=== PATIENT | female | born 1970 | race Caucasian/White ===

== ENCOUNTER 2025-02-12 12:47 | Emergency (ER) | payer MEDICAID, SELFPAY ==
[2025-02-12 12:49] VITALS: BMI 37.6
[2025-02-12 13:10] VITALS: BP 150/87; PULSE 81; RESP 18; TEMP 37.2; O2SAT 96
--- NOTE | 2025-02-12 13:15 | XR_ITS ---
Examination: CT abdomen and pelvis without contrast. Coronal 3-D reconstructions. Sagittal 2-D reconstructions. Date and time of exam:February 04, 2025 1436 hours INDICATIONS: Onset left upper abdominal pain today COMPARISON: June 05, 2017 CTDI: vol (mGy): 18.3 DLP: (mGycm): 1152 Technique: Axial images of the abdomen have been obtained, 3 mm slice thickness Intravenous contrast material has not been administered. Low dose protocols were performed. One or more of the following dose reduction techniques were used; automated exposure control, adjustment of the mA and/or KV according to patient size, use of iterative reconstruction technique. Findings: Diffuse fatty infiltration throughout the liver Absent gallbladder Spleen not enlarged No pancreatic or adrenal mass Status post partial left nephrectomy 1 mm nonobstructing right renal calculus, no hydronephrosis or ureteral calculi Normal appendix Abdominal aortic calcification no aneurysmal dilatation No bowel obstruction No diverticulitis No pelvic mass Bladder intact Moderate degenerative disc disease L4-L5 IMPRESSION: Partial left nephrectomy 1 mm nonobstructing right renal calculus Normal appendix No bowel obstruction or diverticulitis
--- NOTE | 2025-02-12 13:17 | EDNOTE_ITS ---
<Statement entered by Coni Jay MD - 02/16/25 05:26> As co-signing physician, I was present and available for consult prn. I concur with the plan and care as documented by the midlevel provider. ED General RME/HPI General Chief complaint: Abdominal Pain Stated complaint: LEFT UPPER ABD PAIN, NAUSEA, DIARRHEA, SHAKY Time Seen by Provider: 02/12/25 13:15 Arrival date/time: 02/12/25 12:47 CC: Nausea and diarrhea with burning sensation abdomen HPI ongoing for the past 2 days no prior history of similar events denies being around other people who are ill with similar symptoms. Antibiotics several weeks ago for abdominal pain . Patient currently not taking any daily medications states most of her pain is in the left upper quadrant and the right lower quadrant. Denies actual vomiting chest pain shortness of breath or difficulty breathing. Related Data Home Medications ?Medication ?Instructions ?Recorded ?Confirmed famotidine 20 mg tablet (Pepcid) 20 mg PO BID #0 tabs 09/17/17 fluconazole 200 mg tablet 400 mg PO QDAY #0 tabs 09/17 (Diflucan) Previous Rx's ?Medication ?Instructions ?Recorded Fluticasone/Vilanterol (Breo 1 ea IH QDAY #1 ea Ellipta 100-25 Mcg INH) albuterol sulfate 90 mcg/actuation 1 - 2 puff inhalati on Q6HR PRN 09/17/17 aerosol inhaler (ProAir HFA) WHEEZING #1 inh ibuprofen 600 mg tablet 600 mg PO TID PRN pain #30 t abs 08/13/23 meloxicam 7.5 mg tablet 7.5 mg PO QDAY #10 tabs 01/17 06/11 ondansetron 4 mg disintegrating 4 mg PO Q8H #10 tabs 0 02/12/25 tablet Allergies Allergy/AdvReac Type Severity Reaction Status Date / Time vitamin A Allergy Unknown CHEMICAL Verified 02/12/25 12:48 BURN Review of Systems Review of Systems Narrative Review of Systems: GEN: No fever, no chills, no weight loss EYES: No discharge, no visual changes, no pain HEENT: No ear pain, no congestion, no sore throat PULM: No shortness of breath, no cough, no congestion CV: No chest pain, no dyspnea on exertion, no palpitations GI: + nausea, no vomiting, + diarrhea, + pain, no constipation : No frequency, no urgency, no dysuria MUSC/SKEL: No joint pain, no back pain SKIN: No rash PSYCH: No hallucinations, no depression HEME/LYMPH: No easy bleeding or bruising tendencies NEURO: No weakness, no headache ED Exam Narrative Physical exam: [General: Obese not in any acute distress Head normocephalic HEENT: Within acceptable limits Neck is supple nontender Chest equal chest rise nontender to palpation Respiratory: Clear to auscultation no wheezes crackles or rubs CV: Rate rhythm is regular no murmurs rubs or clicks Abdomen diffuse left upper quadrant and right lower quadrant tenderness with palpation, no reflexive guarding no rebound tenderness. Abdomen is distended secondary to body habitus. Back: No CVA tenderness no spinous process tenderness from cervical spine thoracic and lumbar spine Skin: Intact no petechiae rash induration ulceration or crepitus Extremities: Moving all extremity against resistance cap refill less than 2 seconds neurosensory intact Neuro: Awake alert oriented x3 Glascow coma 15 no focal deficits] Course Quality Measures none Orders Category Date Time Status CT abdomen pelvis wo con Stat Exams 02/12/25 13:15 Completed B-Type Natriuretic Peptide Stat Lab 02/12/25 13:16 Completed CBC Stat Lab 02/12/25 13:36 Completed Comprehensive Metabolic Panel Stat Lab 02/12/25 13:16 Completed Drug Screen,Urine Stat Lab 02/12/25 13:28 Completed Lipase Stat Lab 02/12/25 13:16 Completed Magnesium Stat Lab 02/12/25 13:16 Completed Partial Thromboplastin Time Stat Lab 02/12/25 13:36 Completed Prothrombin Time with INR Stat Lab 02/12/25 13:36 Completed Urinalysis Stat Lab 02/12/25 13:28 Completed Ondansetron Odt [Zofran Odt] Med 02/12/25 13:15 Discontinued 4 mg PO X1 ONE Vital Signs Vital signs: Vital Signs Temperature 98.9 F 02/12/25 13:10 Pulse Rate 81 02/12/25 13:10 Respiratory Rate 18 02/12/25 13:10 Blood Pressure 150/87 H 02/12/25 13:10 Pulse Oximetry (%) 96 02/12/25 13:10 Oxygen Delivery Method Room Air 02/12/25 13:10 Discharge Plan Plan Patient Disposition: HOME (Self Care) Patient condition on transfer: Stable Prescriptions/Referrals Prescriptions/Med Rec: New meloxicam 7.5 mg tablet 7.5 mg PO QDAY Qty: 10 0RF ondansetron 4 mg tablet,disintegrating 4 mg PO Q8H Qty: 10 0RF No Action fluconazole [Diflucan] 200 MG tablet 400 mg PO QDAY Qty: 0 famotidine [Pepcid] 20 MG tablet 20 mg PO BID Qty: 0 Patient Comments: TO SUPPRESS GASTRIC ACID SECRETION albuterol sulfate [ProAir HFA] 8.5 GM HFA aerosol inhaler 1 - 2 puff Inhalation Q6HR PRN (Reason: WHEEZING) Qty: 1 0RF Rx Instructions: Please give and use spacer Fluticasone/Vilanterol (Breo Ellipta 100-25 Mcg INH) 1 EACH AER.POW.BA 1 ea IH QDAY Qty: 1 0RF ibuprofen 600 mg tablet 600 mg PO TID PRN (Reason: pain) Qty: 30 0RF Referrals: Unique Turner FNP [Primary Care Provider] - In 1 week Problem List Clinical Impression: Abdominal pain Patient/Caregiver Discharge Instructions Education Materials: Abdominal Pain Print Language: Central African Stand Alone Forms: Geetha Award Info., Patient Portal Info Letter, Work/School Release PA/QUALITY CONSULTANT Supervising Physician KALIE/DANIKA Supervising Physician: Tiffany Ewing ENP [facility] Clinical Information Provided by: patient Medical Records reviewed [facility] Labs Lab(s) Interpretation(s): CBC shows no acute leukocytosis anemia thrombocytopenia Coags within acceptable limits CMP shows no acute electrolyte imbalances renal impairment with a T. bili of 1.4 and no transaminitis BNP is negative Urine is negative for any acute finding 1+ bacteria with 9 epithelial cells U tox is negative CT abdomen pelvis shows a 1 mm stone in the right renal pelvis. Imaging Imaging Interpretation(s): No acute finding quires emergent immune intervention patient be discharged home with nausea and abdominal pain Medication Administration(s) Medication Administration History Discontinued Medications Ondansetron HCl (Ondansetron Odt 4 Mg Tabrap) 4 mg PO X1 ONE; Protocol Stop: 02/12/25 13:16 Last Admin: 02/12/25 13:49 Dose: 4 mg Documented By: IRENA Diagnosis Differential Diagnosis ED Complaint MDM: Diverticulosis diverticulitis ileus
[2025-02-12] MEDS: ONDANSETRON ODT 4 MG TABRAP PO (13:49)
[2025-02-12 13:54] LABS: Collection Type, Urine Clean Catch
[2025-02-12 14:00] LABS: Basophils # (Auto) 0.1 Thou/mm3 (0.0-0.2); Basophils % (Auto) 1 % (0-2.5); Eosinophils # (Auto) 0.2 Thou/mm3 (0.0-0.5); Eosinophils % (Auto) 4 % (0-10); Hematocrit 45.1 % (36.0-46.0); Hemoglobin 15.3 g/dL (12.0-16.0); Immature Granulocytes % (Auto) 0 % (0-0); Immature Granulocytes Auto 0.01 Thou/mm3 (0.00-0.00); Lymphocytes # (Auto) 2.1 Thou/mm3 (1.0-4.8); Lymphocytes % (Auto) 31 % (10-50); Mean Corpuscular HGB Conc 33.9 g/dl (31.0-37.0); Mean Corpuscular Hemoglobin 29.7 pg (25.0-35.0); Mean Corpuscular Volume 87 fL (80-100); Monocytes # (Auto) 0.4 Thou/mm3 (0.0-0.8); Monocytes % (Auto) 6 % (0-12); Neutrophils % (Auto) 59 % (37-80); Nucleated Red Blood Cell % 0 /100 WBC (0); Platelet Count 319 Thou/mm3 (140-440); RDW Standard Deviation 41.1 fL (36.4-46.3); Red Blood Count 5.16 Miln/mm3 (4.00-5.20); White Blood Count 6.8 Thou/mm3 (3.6-11.0)
[2025-02-12 14:17] LABS: Partial Thromboplastin Time 27.6 Seconds (22.0-36.0); Prothrombin Time 11.2 Seconds (9.0-12.2)
[2025-02-12 14:24] LABS: Bacteria,Urine 1+; Bilirubin,Urine Negative (Negative); Blood,Urine Negative (Negative); Clarity,Urine Clear (Clear/Hazy); Color,Urine Yellow (Lt Yel-Yel); Glucose, Urine Negative (Negative); Ketones,Urine Negative (Negative); Leukocyte Esterase,Urine Negative (Negative); Nitrite,Urine Negative (Negative); Protein,Urine Negative (Neg - Trace); RBC,Urine 3 /hpf (0-3); Specific Gravity,Urine 1.021 (1.001-1.035); Squamous Epithelial Cell,Urine 9 /hpf (0-5); WBC,Urine 1 /hpf (0-5)
[2025-02-12 14:32] LABS: B-Type Natriuretic Peptide < 20 pg/mL (0-100)
[2025-02-12 14:34] LABS: Alanine Aminotransferase 17 U/L (10-49); Albumin, Serum 4.8 gm/dL (3.5-5.0); Albumin/Globulin Ratio 2.1 (1.2-2.2); Alkaline Phosphatase 113 U/L (46-116); Anion Gap 9 (7-16); Aspartate Amino Transferase 13 U/L (0-34); BUN/Creatinine Ratio 10 Ratio (12-20); Bilirubin,Total 1.4 mg/dL (0.3-1.2); Blood Urea Nitrogen 9 mg/dL (9-23); Calcium 9.6 mg/dL (8.3-10.6); Calcium (Corrected) 9.6 mg/dL (8.5-10.1); Chloride 106 mMol/L (98-107); Creatinine (Component) 0.9 mg/dL (0.6-1.3); Estimated Creatinine Clearance 100.8 mL/min (>60); Globulin 2.3 gm/dL (2.3-3.5); Glucose 81 mg/dL (74-106); Lipase 26 U/L (12-53); Magnesium 1.9 mg/dL (1.6-2.6); Osmolality,Calculated 280 (275-295); Potassium 3.9 mMol/L (3.4-5.1); Sodium 142 mMol/L (136-145); Total Protein 7.1 gm/dL (5.7-8.2); eGFR > 60 See Note
[2025-02-12 15:06] LABS: Amphetamine/Methamp Scrn,U Negative (Negative); Barbiturate Screen,Urine Negative (Negative); Benzodiazepines Screen,Urine Negative (Negative); Benzoylecgonine Screen, Ur Negative (Negative); Fentanyl Screen,Urine Negative (Negative); Opiate Screen,Urine Negative (Negative); THC Screen,Urine Negative (Negative)
[2025-02-12 15:45] VITALS: BP 124/78; PULSE 78; O2SAT 99
== END 2025-02-12 15:47 | disposition home or self-care (01) ==
PROVIDERS: Registered Nurse General Practice; Emergency Provider Emergency Medicine; PCP Nurse Practitioner Family
DX: R10.12 Left upper quadrant pain (principal)
CPT/HCPCS: 36415; 74176; 80053; 80307; 81001; 83690; 83735; 83880; 85025; 85610; 85730; 99284; Q0162

== ENCOUNTER 2025-09-04 13:09 | Emergency (ER) | payer MEDICAID, SELFPAY ==
[2025-09-04 13:15] VITALS: BP 145/87; PULSE 88; RESP 22; TEMP 36.9; O2SAT 95; BMI 36.4
--- NOTE | 2025-09-04 13:21 | EKG_ITS ---
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
--- NOTE | 2025-09-04 13:21 | XR_ITS ---
Examination: CT brain head without contrast. 2-D sagittal coronal reconstructions Date and time of exam: September 04, 2025, 1338 hours INDICATIONS: Headache and dizziness today COMPARISON: August 13, 2023 CTDI: vol (mGy): 52.3 DLP: (mGycm): 1061 Technique: Multiple CT axial sections of the brain have been obtained, 5 mm slice thickness. Contrast has not been administered. 2-D sagittal, coronal reconstructions have been obtained Low dose protocols were performed. One or more of the following dose reduction techniques were used; automated exposure control, adjustment of the mA and/or KV according to patient size, use of iterative reconstruction technique. Findings: No significant ventricular enlargement. Intra-axial or extra-axial hemorrhage density is not seen. No mass effect or midline shift Basal cisterns are not remarkable. Fourth ventricle is midline. Cranial vault intact. Impression: Negative for acute hemorrhage, mass effect or midline shift Advise clinical correlation and follow-up accordingly
--- NOTE | 2025-09-04 13:21 | XR_ITS ---
EXAMINATION: PA chest single view TECHNIQUE: Upright PA chest single view Date and time: September 04, 2025, 1355 hours INDICATIONS: Intermittent chest pain and right-sided neck pain beginning 2 weeks ago. FINDINGS: Parenchymal disease in the lingular segment obscuring detail of the left cardiac contour 20 mm pulmonary nodule in the right upper lobe, please see the CT chest report April 03, 2024 Normal heart size IMPRESSION: Recommend lateral chest view follow-up to exclude pneumonia in the lingular segment left upper lobe
--- NOTE | 2025-09-04 13:24 | EDNOTE_ITS ---
ED Headache RME/HPI General Chief Complaint: Headache Stated Complaint: SEVERE GALLARDO, SCALP BURNING/FEELS FUNNY, DIZZY, N/V Time Seen by Provider: 09/04/25 13:18 Source: patient Arrival date/time: 09/04/25 13:09 55-year-old female with a history of kidney cancer, COPD, presents to the emerge ncy room with a chief complaint of a 10 out of 10 headache, dizziness, lightheadedness x 2 weeks Mode of arrival: ambulatory Limitations: no limitations Related Data Home Medications ?Medication ?Instructions ?Recorded ?Confirmed famotidine 20 mg tablet (Pepcid) 20 mg PO BID #0 tabs 09/17/17 fluconazole 200 mg tablet 400 mg PO QDAY #0 tabs 09/17 (Diflucan) Previous Rx's ?Medication ?Instructions ?Recorded Fluticasone/Vilanterol (Breo 1 ea IH QDAY #1 ea Ellipta 100-25 Mcg INH) albuterol sulfate 90 mcg/actuation 1 - 2 puff inhalati on Q6HR PRN 09/17/17 aerosol inhaler (ProAir HFA) WHEEZING #1 inh ibuprofen 600 mg tablet 600 mg PO TID PRN pain #30 t abs 08/13/23 meloxicam 7.5 mg tablet 7.5 mg PO QDAY #10 tabs 01/17 06/11 ondansetron 4 mg disintegrating 4 mg PO Q8H #10 tabs 0 02/12/25 tablet ondansetron 4 mg disintegrating 4 mg PO Q8H PRN nausea and 09/04/25 tablet vomiting #14 tabs sulfamethoxazole 800 1 tab PO BID #14 tabs mg-trimethoprim 160 mg tablet (Bactrim DS) Allergies Allergy/AdvReac Type Severity Reaction Status Date / Time vitamin A Allergy Unknown CHEMICAL Verified 09/04/25 13:12 BURN Review of Systems Review of Systems Systems Reviewed: All systems reviewed, normal except as documented Constitutional Constitutional: Reports system reviewed and no additional complaints, except as documented, Denies fatigue, Denies fever(s), Reports headache(s) and Reports weakness Eyes Eyes: Reports system reviewed and no additional complaints, except as documented, Denies blurry vision and Denies change in vision ENT Ears, Nose, Mouth, and Throat: Reports system reviewed and no additional complaints, except as documented, Denies otalgia, Reports headache(s), Denies nasal congestion, Denies throat swelling and Reports vertigo Cardiovascular Cardiovascular: Reports system reviewed and no additional complaints, except as documented, Denies chest pain, Denies dyspnea and Denies dyspnea on exertion Respiratory Respiratory: Reports system reviewed and no additional complaints, except as doc umented, Denies chest congestion, Denies cough, Denies dyspnea, Denies dyspnea on exertion and Denies wheezing Gastrointestinal Gastrointestinal: Reports system reviewed and no additional complaints, except as documented, Denies abdominal pain, Denies cramping, Denies nausea and Denies vomiting Genitourinary Genitourinary: Reports system reviewed and no additional complaints, except as documented Musculoskeletal Musculoskeletal: Reports system reviewed and no additional complaints, except as documented and Denies back pain Integumentary/Breasts Skin/Breast: Reports system reviewed and no additional complaints, except as documented and Denies wounds Neurologic Neurologic: Reports system reviewed and no additional complaints, except as documented, Denies confusion, Reports headache(s), Denies lack of coordination, Reports vertigo and Reports weakness Psychiatric Psychiatric: Reports system reviewed and no additional complaints, except as documented, Denies anxiety, Denies confusion, Denies depression, Denies paranoia, Denies suicidal ideation and Denies tactile hallucinations Endocrine Endocrine: Reports system reviewed and no additional complaints, except as documented and Denies fatigue Hematologic/Lymphatic Hematologic/Lymphatic: Reports system reviewed and no additional complaints, except as documented and Denies lymphadenopathy Allergic/Immunologic Allergic/Immunologic: Reports system reviewed and no additional complaints, except as documented, Denies throat swelling, Denies urticaria and Denies wheezing Past Medical History Past Medical History OTHER HISTORY: Positive Blood Transfusions Social History SMOKING STATUS: Current every day smoker ED Exam General Limitations: Present no limitations General appearance: Present alert and in no apparent distress Head Head exam: Present atraumatic, normocephalic and normal inspection Eye Eye exam: Present normal appearance, PERRL and EOMI ENT ENT exam: Present normal exam, normal oropharynx and mucous membranes moist Neck Neck exam: Present normal inspection, full ROM and trachea midline Chest Chest inspection: Present normal inspection and symmetric chest wall rise Respiratory Respiratory exam: Present normal lung sounds bilaterally Cardiovascular Cardiovascular exam: Present regular rate, normal rhythm and normal heart sounds Abdominal Exam Abdominal exam: Present soft and normal bowel sounds Extremities Exam Extremities exam: Present normal inspection and full ROM Back Exam Back exam: Present normal inspection and full ROM Neurological Exam Neurological exam: Present alert, oriented X3, CN II-XII intact, normal gait and reflexes normal Expanded Neurological Exam Patient oriented to: Present person, place and time Speech: Present fluid speech Cranial nerves: Normal: EOM function (II, III, IV, ) and facial sensation (V) Cerebellar function: Present normal gait Motor strength - LUE: 5/5 Motor strength - RUE: 5/5 Motor strength - LLE: 5/5 Motor strength - RLE: 5/5 Coma scale eye opening: spontaneous Coma scale motor response: obeys commands Coma scale verbal response: oriented Coma scale total: 15 Psychiatric Psychiatric exam: Present normal affect and normal mood Skin Skin exam: Present warm, dry, intact and normal color Course Quality Measures none Orders Category Date Time Status EKG (ED ONLY) *Do not use* NOW Care 09/04/25 13:[address] head/brain wo con Stat Exams 09/04/25 13:21 Completed EKG (ED Only) Stat Exams 09/04/25 13:21 Draft XR chest 1V portable Stat Exams 09/04/25 13:21 Completed B-Type Natriuretic Peptide Stat Lab 09/04/25 13:29 Completed CBC Stat Lab 09/04/25 13:29 Completed Comprehensive Metabolic Panel Stat Lab 09/04/25 13:29 Completed Drug Screen,Urine Stat Lab 09/04/25 13:50 Completed Free T4 (Free Thyroxine) Stat Lab 09/04/25 13:29 Completed Magnesium Stat Lab 09/04/25 13:29 Completed Partial Thromboplastin Time Stat Lab 09/04/25 13:29 Completed Prothrombin Time with INR Stat Lab 09/04/25 13:29 Completed TSH [Thyroid Stimulating Hormone] Stat Lab 09/04/25 13:29 Completed Troponin I Stat Lab 09/04/25 13:29 Completed Urinalysis, C/S if Indicated Stat Lab 09/04/25 13:50 Completed Urine Culture Stat Lab 09/04/25 13:50 Received Vital Signs Vital signs: Vital Signs Temperature 98.4 F 09/04/25 13:15 Pulse Rate 88 09/04/25 13:15 Respiratory Rate 22 H 09/04/25 13:15 Blood Pressure 145/87 H 09/04/25 13:15 Pulse Oximetry (%) 95 09/04/25 13:15 Oxygen Delivery Method Room Air 09/04/25 13:15 Headache MDM Narrative MDM Narrative:: 55-year-old female with a history of kidney cancer, COPD, presents to the emergency room with a chief complaint of a 10 out of 10 headache, dizziness, lightheadedness x 2 weeks Patient is hemodynamically stable and in no apparent distress Physical examination shows a normal neurological exam. Pupils are PERRLA EOMs are intact the patient has no focal neurological deficits. The patient has a normal steady gait. CT of the head and brain was negative for any acute findings. CBC CMP were all within normal limits. Urinalysis showed a urinary tract infection. Chest x-ray showed a possible early pneumonia. There was also an incidental finding of a 20 mm pulmonary nodule. Patient states she is aware of this nodule and has had workups for it and has an appointment in 1 month. Patient was discharged and educated to follow-up with primary care provider in the next 24 to 48 hours and return to the emergency room for any evidence of worsening signs or symptoms Patient data External records reviewed:: [facility] previous records Clinical information provided by:: patient Social determinants that could affect healthcare access:: none Patient has the following chronic illnesses:: Kidney cancer How is presenting disease/condition affected by chronic disease/condition?: uneffected by Evaluation data The following diagnostics were reviewed and interpreted by me:: lab results and radiology exam(s) Lab and/or radiology exams considered but not ordered:: Labs and radiology exams considered and ordered Interpretation Summary: CT head and brain-Findings: No significant ventricular enlargement. Intra-axial or extra-axial hemorrhage density is not seen. No mass effect or midline shift Basal cisterns are not remarkable. Fourth ventricle is midline. Cranial vault intact. Impression: Negative for acute hemorrhage, mass effect or midline shift Advise clinical correlation and follow-up accordingly Medications / Prescriptions Medications or Prescriptions considered but not ordered:: No medication given Medication administrations:: No medication given Consultations Consultation(s) initiated? (list below): No Diagnosis Differential diagnosis headache: migraine, tension headache, subarachnoid hemorrhage, headache and other (Brain lesion/UTI) Most likely diagnosis given after review of the tests above:: Urinary tract infection Admission Indicated Admission indicated?: not indicated Admission Request Was there a request for admission?: No Disposition Plan Disposition Plan: Discharge Discharge Attestation Discharge Attestation: The patient and all family members were given an opportunity to ask questions and understood the discharge instructions. Discharge instructions specifically effects, indications for sooner follow up or return to the emergency department, and the expected course of current diagnosis. Patient condition: Stable Discharge Plan Plan Patient Disposition: HOME (Self Care) Discharge Disposition comment: Stable Prescriptions/Referrals Prescriptions/Med Rec: New sulfamethoxazole-trimethoprim [Bactrim DS] 800-160 mg tablet 1 tab PO BID Qty: 14 0RF ondansetron 4 mg tablet,disintegrating 4 mg PO Q8H PRN (Reason: nausea and vomiting) Qty: 14 0RF No Action fluconazole [Diflucan] 200 MG tablet 400 mg PO QDAY Qty: 0 famotidine [Pepcid] 20 MG tablet 20 mg PO BID Qty: 0 Patient Comments: TO SUPPRESS GASTRIC ACID SECRETION albuterol sulfate [ProAir HFA] 8.5 GM HFA aerosol inhaler 1 - 2 puff Inhalation Q6HR PRN (Reason: WHEEZING) Qty: 1 0RF Rx Instructions: Please give and use spacer Fluticasone/Vilanterol (Breo Ellipta 100-25 Mcg INH) 1 EACH AER.POW.BA 1 ea IH QDAY Qty: 1 0RF ibuprofen 600 mg tablet 600 mg PO TID PRN (Reason: pain) Qty: 30 0RF meloxicam 7.5 mg tablet 7.5 mg PO QDAY Qty: 10 0RF ondansetron 4 mg tablet,disintegrating 4 mg PO Q8H Qty: 10 0RF Referrals: Bethany Yates PA-C [Primary Care Provider] - In 1 week Problem List Clinical Impression: Urinary tract infection, Pulmonary nodule Patient/Caregiver Discharge Instructions Education Materials: ED CYSTITIS Female Adult Additional Instructions: Please follow-up with your primary care provider in the next [address] of your head and brain was negative for any acute findings. Your blood work was negative for any acute findings. Your urinalysis showed a urinary tract infection. Antibiotics are sent to your pharmacy please pick them up and take them as indicated. The chest x-ray was negative for any pneumonia but did find some pulmonary nodules. I have greeted and performed a focused initial assessment of this patient. A comprehensive ED assessment and evaluation of the patient, analysis of all test results, and completion of the medical decision making process will be conducted by additional ED providers. Print Language: Arabic Stand Alone Forms: Geetha Award Info., Work/School Release, Patient Portal Info Letter PA/INSULATION HOSEMAN Supervising Physician PA/INSULATION HOSEMAN Supervising Physician: Dr. Davis
[2025-09-04 13:46] LABS: Basophils # (Auto) 0.1 Thou/mm3 (0.0-0.2); Basophils % (Auto) 1 % (0-2.5); Eosinophils # (Auto) 0.5 Thou/mm3 (0.0-0.5); Eosinophils % (Auto) 4 % (0-10); Hematocrit 45.2 % (36.0-46.0); Hemoglobin 15.4 g/dL (12.0-16.0); Immature Granulocytes Auto 0.04 Thou/mm3 (0.00-0.00); Lymphocytes # (Auto) 2.5 Thou/mm3 (1.0-4.8); Lymphocytes % (Auto) 23 % (10-50); Mean Corpuscular HGB Conc 34.1 g/dl (31.0-37.0); Mean Corpuscular Hemoglobin 30.4 pg (25.0-35.0); Mean Corpuscular Volume 89 fL (80-100); Monocytes # (Auto) 0.6 Thou/mm3 (0.0-0.8); Monocytes % (Auto) 6 % (0-12); Neutrophils # (Auto) 7.2 Thou/mm3 (1.8-7.7); Neutrophils % (Auto) 67 % (37-80); Nucleated Red Blood Cell # 0.00 Thou/mm3 (0.00-0.00); Nucleated Red Blood Cell % 0 /100 WBC (0); Platelet Count 341 Thou/mm3 (140-440); RDW Standard Deviation 43.0 fL (36.4-46.3); Red Blood Count 5.06 Miln/mm3 (4.00-5.20); White Blood Count 10.9 Thou/mm3 (3.6-11.0)
[2025-09-04 14:01] LABS: B-Type Natriuretic Peptide < 20 pg/mL (0-100)
[2025-09-04 14:02] LABS: INR 1.0 (0.9-1.3); Partial Thromboplastin Time 29.9 Seconds (22.0-36.0); Prothrombin Time 10.3 Seconds (9.0-12.2)
[2025-09-04 14:06] LABS: Alanine Aminotransferase 18 U/L (10-49); Albumin, Serum 4.9 gm/dL (3.5-5.0); Albumin/Globulin Ratio 2.6 (1.2-2.2); Alkaline Phosphatase 109 U/L (46-116); Anion Gap 12 (7-16); Aspartate Amino Transferase 14 U/L (0-34); BUN/Creatinine Ratio 10 Ratio (12-20); Bilirubin,Total 0.7 mg/dL (0.3-1.2); Blood Urea Nitrogen 8 mg/dL (9-23); Calcium 9.2 mg/dL (8.3-10.6); Calcium (Corrected) 9.2 mg/dL (8.5-10.1); Carbon Dioxide 23.0 mMol/L (20.0-31.0); Chloride 107 mMol/L (98-107); Creatinine (Component) 0.8 mg/dL (0.6-1.3); Estimated Creatinine Clearance 110.1 mL/min (>60); Free T4 (Free Thyroxine) 1.41 ng/dL (0.89-1.76); Globulin 1.9 gm/dL (2.3-3.5); Glucose 112 mg/dL (74-106); Magnesium 2.0 mg/dL (1.6-2.6); Osmolality,Calculated 282 (275-295); Potassium 3.7 mMol/L (3.4-5.1); Sodium 142 mMol/L (136-145); Thyroid Stimulating Hormone 0.96 uIU/mL (0.55-4.78); Total Protein 6.8 gm/dL (5.7-8.2); Troponin I < 0.002 ng/mL (0.0-0.045); eGFR > 60 See Note
[2025-09-04 14:11] LABS: Collection Type, Urine Clean Catch
[2025-09-04 14:24] LABS: Bacteria,Urine 4+; Bilirubin,Urine Negative (Negative); Blood,Urine Negative (Negative); Color,Urine Lt-Yellow (Lt Yel-Yel); Glucose, Urine Negative (Negative); Ketones,Urine Negative (Negative); Leukocyte Esterase,Urine Positive (Negative); Nitrite,Urine Negative (Negative); PH,Urine 6.0 (5.0-7.0); Protein,Urine Negative (Neg - Trace); RBC,Urine 5 /hpf (0-3); Specific Gravity,Urine 1.009 (1.001-1.035); Squamous Epithelial Cell,Urine < 1 /hpf (0-5); Urobilinogen,Urine Negative mg/dL (0.0-1.0); WBC,Urine 56 /hpf (0-5)
[2025-09-04 14:26] LABS: Amphetamine/Methamp Scrn,U Negative (Negative); Barbiturate Screen,Urine Negative (Negative); Benzodiazepines Screen,Urine Negative (Negative); Benzoylecgonine Screen, Ur Negative (Negative); Fentanyl Screen,Urine Negative (Negative); Opiate Screen,Urine Negative (Negative); THC Screen,Urine Negative (Negative)
[2025-09-04 14:33] LABS: Clarity,Urine Hazy (Clear/Hazy); Culture Indicated,Urine Yes
== END 2025-09-04 15:59 | disposition home or self-care (01) ==
PROVIDERS: Nurse Practitioner Family; Emergency Provider Emergency Medicine; PCP Physician Assistant
DX: N39.0 Urinary tract infection, site not specified (principal); R91.1 Solitary pulmonary nodule; J44.9 Chronic obstructive pulmonary disease, unspecified; Z85.528 Personal history of other malignant neoplasm of kidney
CPT/HCPCS: 36415; 70450; 71045; 80053; 80307; 81001; 83735; 83880; 84439; 84443; 84484; 85025; 85610; 85730; 87077; 87086; 87186; 93005; 99283